=== PATIENT | male | born 1950 | race Caucasian/White ===

== ENCOUNTER 2021-06-13 11:00 | Outpatient (RCR) | payer OTHER, SELFPAY | END 2021-06-13 15:10 | disposition home or self-care (01) | DX: Z95.1 Presence of aortocoronary bypass graft (principal); Z98.61 Coronary angioplasty status; I20.8 Other forms of angina pectoris | CPT/HCPCS: 93798 ==

== ENCOUNTER 2023-10-21 08:00 | Outpatient (RCR) | payer SELFPAY | END 2023-10-21 08:03 | disposition home or self-care (01) | LOC: CHSCPRIII 08:00 | DX: Z95.1 Presence of aortocoronary bypass graft (principal); Z98.61 Coronary angioplasty status; I20.8 Other forms of angina pectoris | CPT/HCPCS: 99199 ==